=== PATIENT | male | born 1965 | race Caucasian/White ===

== ENCOUNTER 2020-09-29 14:19 | Emergency (ER) | payer OTHER ==
[2020-09-29] MEDS ORDERED: HYDROCODON-ACE1 EAC4 PO (15:45)
== END 2020-09-29 15:50 | disposition home or self-care (01) ==
LOC: ER1 14:19
DX: S46.911A Strain of unspecified muscle, fascia and tendon at shoulder and upper arm level, right arm, initial encounter (principal); E11.9 Type 2 diabetes mellitus without complications; I10 Essential (primary) hypertension; Z90.89 Acquired absence of other organs; X50.0XXA Overexertion from strenuous movement or load, initial encounter
CPT/HCPCS: 73030; 99283

== ENCOUNTER 2021-04-21 19:28 | Emergency (ER) | payer BC ==
[~2021-04-21 19:28] MED LIST: HYDROCODON-ACE1 EAC4 PO
[2021-04-21 20:08] LABS: HEMOGLOBIN 17.2 gm/dl (14.0-17.5); RED BLOOD COUNT 5.14 M/UL (4.20-5.50); WHITE BLOOD COUNT 12.6 K/UL (4.5-11.0)
[2021-04-21 20:29] LABS: BUN/CREATININE RATIO 23 (0-10)
[2021-04-21] MEDS ORDERED: EPIPEN 2-P0.3 MG/0.3 INJ (22:17)
== END 2021-04-21 22:17 | disposition home or self-care (01) ==
LOC: ER1 19:28
PROVIDERS: Physician Assistant Medical
DX: T78.40XA Allergy, unspecified, initial encounter (principal); E78.5 Hyperlipidemia, unspecified; E11.9 Type 2 diabetes mellitus without complications; I10 Essential (primary) hypertension
CPT/HCPCS: 80053; 82550; 82553; 83874; 84484; 85025; 93005; 96372; 99283; J2930